=== PATIENT | female | born 1990 | race African-American/Black ===

== ENCOUNTER 2017-10-22 07:46 | Emergency (ER) | payer BC ==
[2017-10-22] MEDS ORDERED: DIAZEPAM 5 MG/ML SYG IM (09:00)
[2017-10-22] MEDS: IBUPROFEN 600 MG TAB PO (09:08)
[2017-10-22] MEDS: DIAZEPAM 5 MG TAB PO (09:09)
== END 2017-10-22 10:28 | disposition home or self-care (01) ==
LOC: FTE 07:46
DX: R07.9 Chest pain, unspecified (principal); F17.210 Nicotine dependence, cigarettes, uncomplicated
CPT/HCPCS: 71045; 93005; 99284-25